=== PATIENT | male | born 1965 | race Caucasian/White ===

== ENCOUNTER 2017-05-16 08:29 | Outpatient (CLI) | payer BC ==
--- NOTE | 2017-05-16 09:59 | CT ---
CT LUMBAR SPINE WITHOUT CONTRAST: History: Low back pain. Symptoms x 30 years. Pain radiates down the right leg. Comparison: None. Technique: Noncontrast lumbar spine CT is performed in the axial plane. Reformatted images are submit ngoc for interpretation. FINDINGS: Five lumbar type vertebral bodies. The lumbar spine vertebral body height is maintained. There is no fracture. Vacuum disc phenomenon at L5-S1. There are bilateral pars defects at L5. There is 7.6 mm an terolisthesis of L5 upon S1. No retroperitoneal mass, lymphadenopathy, or hematoma. There is exophytic hypodensity emanating from the right renal cortex with attenuation coefficient of 9 Hounsfield units compatible with a cyst antionette uring 1.8 cm. Bilaterally, no obstructive uropathy. Visualized alimentary canal is unremarkable. Upper sacrum is unremarkable. Mild leftward curvature of the lumbar spine centered at L4. Limited evaluation of the contents of the central spinal canal and neural foramina due to technique. T11-12 and T12-L1: No significant central canal stenosis or foraminal narrowing. L1-2: No significant central canal stenosis. Neural foramina are patent bilaterally. L2-3: Moderate loss of disc space height. Generalized disc bulge, ligamentum flavum thickening result s in minimal central canal stenosis. Mild right and moderate left foraminal narrowing. L3-4: Mild loss of disc space height. Generalized disc bulge does not cause any high grade central ca nal stenosis. Moderate right and left foraminal narrowing. L4-5: Generalized disc bulge and ligamentum flavum thickening result in mild central canal stenosis. Narrowing of both subarticular zones. Presume mass effect without obscuration of bilateral traversing L5 nerve roots. Moderate bilateral foraminal narrow. L5-S1: Vacuum disc phenomenon. No high grade central canal stenosis. Moderate bilateral foraminal angie rowing. IMPRESSION: 1. Grade I anterolisthesis of L5 upon S1. There is associated bilateral pars defects. 2. Degenerative change in the lumbar spine as above. There is mild central canal stenosis at L4-5. Th ere is presumed mass effect on bilateral traversing L5 nerve roots. Significant foraminal narrowing as detailed above. POS: [facility]
== END 2017-05-16 08:30 | disposition home or self-care (01) ==
LOC: TBSIIMAG 08:29
PROVIDERS: ATTEND Neurological Surgery
DX: M54.5 Low back pain (principal); M43.17 Spondylolisthesis, lumbosacral region; M47.896 Other spondylosis, lumbar region; M48.061 Spinal stenosis, lumbar region without neurogenic claudication; M99.83 Other biomechanical lesions of lumbar region
CPT/HCPCS: 72131

== ENCOUNTER 2017-12-11 08:08 | Day surgery (SDC) | payer BC ==
[2017-12-08 11:04] VITALS: BMI 27.2
--- NOTE | 2017-12-11 07:30 | HP ---
HISTORY OF PRESENT ILLNESS: Mr. Ornelas is a 52-year-old gentleman who reports today for evaluation o f 20 plus years of lumbar back pain that over the last couple of years, it started to increase. He d oes have on occasion some radiation into bilateral buttocks, recent symptoms suggests bilateral pars defects with grade I borderline, grade 2 spondylolisthesis that would explain the symptoms that he lira d therapy, injections, and medications with only minimal relief and is at the point where he wo uld like to move forward with surgery if possible. PAST MEDICAL HISTORY: Significant for osteoarthritis, back pain. CURRENT MEDICATIONS: Tramadol, meloxicam, ibuprofen, Nexium, cyclobenzaprine, methocarbamol, testost erone. ALLERGIES: No known drug allergies. PAST SURGICAL HISTORY: Right knee unspecified, left knee replacement. PHYSICAL EXAMINATION: The patient is alert and oriented x3. Gait is normal, no ataxia. Lower extre mity motor exam is normal. ASSESSMENT: Lumbar back pain and spondylolisthesis. PLAN: Dr. Mitchell met with the patient, reviewed imaging and advocated for bilateral facetectomy seen atL5-S1. He explained to the patient the risks, benefits, alternatives of the procedure. The patien t expressed understanding and would like to move forward with surgery as discussed. I do believe the patient is mentally competent and capable of making medical decisions for himself and we will move f orward with surgery as planned.
[2017-12-11] MEDS ORDERED: Midazolam HCl 2 mg/2 ml Vial ONE (08:39)
[2017-12-11] MEDS ORDERED: CEFAZOLIN 2 GM/50 ML BAG ONE ×2 (08:39→15:35)
[2017-12-11] MEDS ORDERED: Bupivacaine HCl 0.5%/Epinephrine 1:200,000/PF 30 ml Vial ONE (11:10)
[2017-12-11] MEDS ORDERED: Thrombin 5000 UNITS/5 ML VIAL ONE (11:10)
[2017-12-11] MEDS ORDERED: Fentanyl 250 MCG/5 ML VIAL ONE (11:16)
[2017-12-11] MEDS ORDERED: HYDROcodone/Acetaminophen 5/325 mg Tablet ONE (14:55)
[2017-12-11] MEDS ORDERED: PROPOFOL 200 MG/20 ML VIAL ONE (14:58)
[2017-12-11] MEDS ORDERED: Glycopyrrolate 0.2 MG/ML 5 ML SYRINGE ONE (14:58)
[2017-12-11] MEDS ORDERED: Ondansetron PF 4 MG/2 ML Vial ONE (14:58)
[2017-12-11] MEDS ORDERED: Lidocaine 1% PF 5 ML VIAL ONE ×2 (14:58)
[2017-12-11] MEDS ORDERED: Dexamethasone 20 MG/5 ML VIAL ONE (14:58)
[2017-12-11] MEDS ORDERED: PHENYLEPHRINE-NS 100 MCG/ML 10 ML SYRINGE ONE (14:58)
--- NOTE | 2017-12-12 13:07 | OP ---
DATE OF OPERATION: 12/11/2017 SURGEON: Kodak Mitchell M.D. MANAGER [employer]: Fermin Matthew PA-C INDICATION: Pain. DIAGNOSIS: Bilateral L5 pars fractures with associated spondylolisthesis with associated low back pa in and lumbar radiculopathy. PROCEDURE: Bilateral L5-S1 facetectomies, bilateral L5-S1 posterior lateral instrumented fusion, connor cement of allograft, placement of autograft. ANESTHESIA: General. TECHNIQUE: The patient was brought into the operating room and placed under general anesthesia. He was flipped from a supine to prone position on the operating room table. A linear incision was plann ed over the L5-S1 segment. After prepping and draping and after appropriate operative pause, the inc ision was created. The soft tissues were swept away from midline. A self-retaining retractor was pl aced in the wound for optimal exposure. After confirming the appropriate levels with C-arm fluorosco py, the facet joints at L5-S1 were removed until the exiting L5 nerve roots could be visualized and i dentified and found to be decompressed. The pedicles at L5-S1 were identified bilaterally. Pedicle screws were placed in L5-S1 bilaterally with the aid of C-arm fluoroscopy. An intraoperative 3D CT s can was performed to confirm appropriate placement of hardware. Rods were then placed across the scr ew heads and final tightened. Allograft and autograft material were then placed within the lateral c onfines of the instrumentation construct. Wound was irrigated. Hemostasis was maintained throughout . The wound was then closed in anatomic layers and a pressure dressing was applied. There were no k nown procedural complications.
== END 2017-12-11 16:28 | disposition home or self-care (01) ==
LOC: SDC 08:08
PROVIDERS: ATTEND Neurological Surgery
PROC: 0SG30J1 Fusion of Lumbosacral Joint with Synthetic Substitute, Posterior Approach, Posterior Column, Open Approach (ICD-10-PCS; principal; 2017-12-11)
DX: S32.059A Unspecified fracture of fifth lumbar vertebra, initial encounter for closed fracture (principal); M43.16 Spondylolisthesis, lumbar region; M54.16 Radiculopathy, lumbar region; M19.90 Unspecified osteoarthritis, unspecified site; Z79.899 Other long term (current) drug therapy; Z88.5 Allergy status to narcotic agent; Z96.652 Presence of left artificial knee joint
CPT/HCPCS: 76001; 96374; C1713; C1768; J0670; J1100; J2001; J2250; J2405; J2704; J3010

== ENCOUNTER 2018-12-18 11:31 | Outpatient (CLI) | payer BC ==
--- NOTE | 2018-12-18 11:53 | RAD ---
3 views of the lumbar spine: 12/18/2018 COMPARISON: None HISTORY: Low back pain FINDINGS: Posterior fusion hardware with bilateral pedicle screws at L5 and S1 noted. There is artie listhesis of L5 on S1 measuring 12 mm on flexion, 11 mm on extension, and 12 mm on neutral imaging. No additional area of anterolisthesis or retrolisthesis noted within the lumbar spine. There is disc space narrowing with degenerative endplate change at L1-2, L2-3, and L5-S1. IMPRESSION: Degenerative and postoperative change within the lumbar spine as detailed above.
== END 2018-12-18 11:32 | disposition home or self-care (01) ==
LOC: TBSIIMAG 11:31
PROVIDERS: ATTEND Neurological Surgery
DX: M54.5 Low back pain (principal); M47.816 Spondylosis without myelopathy or radiculopathy, lumbar region; M47.817 Spondylosis without myelopathy or radiculopathy, lumbosacral region
CPT/HCPCS: 72100

== ENCOUNTER 2019-02-08 09:30 | Inpatient (IN) | payer BC ==
[2019-02-08] MEDS ORDERED: Diltiazem HCl 125 MG, Admixture Fee 1 EACH in Sodium Chloride 0.9% 100 ML IVPB SCH (10:15)
[2019-02-08 10:29] LABS: #Eosinphils 0.1 thou/uL (0.0-0.7); #Lymphocytes 1.3 thou/uL (1.20-3.40); #Monocytes 0.5 thou/uL (0.11-0.59); #Neutrophils 4.4 thou/uL (1.40-6.50); %Basophils 0.4 % (0.0-1.0); %Eosinophils 1.6 % (0.0-10.0); %Lymphocytes 20.8 % (21.0-51.0); %Monocytes 8.4 % (0.0-10.0); %Neutrophils 68.7 % (42.0-75.0); Hemoglobin 18.9 g/dL (14.0-18.0); Mean Corpuscular HGB CONC 32.3 g/dL (32.0-36.0); Mean Corpuscular Hemoglobin 30.1 pg (27.0-31.0); Mean Corpuscular Volume 93.1 fL (78.0-98.0); Mean Platelet Volume 7.5 fL (7.4-10.4); Platelet Count 222 thou/uL (130-400); RBC Distribution Width 12.2 % (11.5-14.5); Red Blood Cell (RBC) Count 6.27 mill/uL (4.70-6.10); White Blood Cell (WBC) Count 6.5 thou/uL (4.8-10.8)
[2019-02-08 10:47] LABS: ALT (SGPT) 31 U/L (8-55); AST (SGOT) 23 U/L (5-34); Albumin 4.6 g/dL (3.5-5.0); Alkaline Phosphatase 56 U/L (40-110); Anion Gap 13 mmol/L (10-20); BUN (Urea Nitrogen) 14 mg/dL (8.4-25.7); Bilirubin, Total 1.6 mg/dL (0.2-1.2); Calc. Creatinine Clearance 0 mL/min (70-130); Calcium 9.2 mg/dL (7.8-10.44); Carbon Dioxide 29 mmol/L (22-29); Chloride 101 mmol/L (98-107); Estimated GFR-MDRD 65; Globulin 2.7 g/dL (2.4-3.5); Glucose 110 mg/dL (70-105); INR-International Normal Ratio 0.9; PTT 29.4 SEC (22.9-36.1); Protein, Total 7.3 g/dL (6.0-8.3); Prothrombin Time 12.2 SEC (12.0-14.7); Sodium 139 mmol/L (136-145)
[2019-02-08 10:52] LABS: D-Dimer Test Less than 0.27 *mcg/mL (0.27-0.43)
--- NOTE | 2019-02-08 10:53 | RAD ---
CHEST ONE VIEW: HISTORY: Chest pain. COMPARISON: Radiograph from 12/12/2013. FINDINGS: The lungs are clear. No pneumothorax or effusion. The cardiac silhouette and mediastinal contour is w ithin normal limits. Low grade atelectatic changes in the lung bases. No acute osseous abnormality. IMPRESSION: No acute intrathoracic abnormality. POS: [facility]
[2019-02-08] MEDS ORDERED: Magnesium 2 GM/50 ML BAG (IN WATER) ONE (10:59)
[2019-02-08] MEDS ORDERED: Aspirin Chewable 81 MG TAB ONE (10:59)
[2019-02-08] MEDS ORDERED: Ondansetron PF 4 MG/2 ML Vial IVP PRN (11:26)
[2019-02-08] MEDS ORDERED: Acetaminophen 325 MG TAB PO PRN (11:26)
[2019-02-08] MEDS ORDERED: Diltiazem 125 MG in Sodium Chloride 0.9% 100 ML IVPB SCH (11:30)
--- NOTE | 2019-02-08 12:08 | HP ---
PRIMARY CARE PROVIDER: Kendra Montiel, in [place], [place] CHIEF COMPLAINT: Palpitations. HISTORY OF PRESENT ILLNESS: Mr. Ornelas is a pleasant 53-year-old gentleman, who was seen at [facility] on February 08, 2019. He reports that he has a chronic history of palpitations. He saw Cardiology, Dr. Joyner approximately 6 years ago. At that time, he had echocardiogram and stress test. His palpitations were attributed to PVCs. He continued to have symptoms on and off. He saw diver assistant, Dr. Gonzalez and approximately a month ago, had Holter monitor for a week. He has not gone back for his followup yet. Today morning, he started having palpitations again. He felt lightheaded and sweaty. He denies any chest pain. He denies any nausea or vomiting. He denies any abdominal pain. He called EMS. He was found to be in atrial fibrillation with rapid ventricular response at 190 beats per minute. He received 50 mg of Cardizem and nitroglycerin, with improvement in his heart rate. REVIEW OF SYSTEMS: All systems were reviewed and found to be negative, except for the pertinent positives mentioned above. PAST MEDICAL HISTORY: Palpitations. PAST SURGICAL HISTORY: Bilateral knee surgery, left shoulder surgery, back surgery. PSYCHIATRIC HISTORY: Anxiety. SOCIAL HISTORY: Occasional alcohol use, no tobacco or recreational drug use. FAMILY HISTORY: Coronary artery disease and diabetes mellitus in his father. ALLERGIES: MORPHINE. CURRENT MEDICATIONS: 1. Tramadol p.r.n. 2. Wellbutrin 150 mg daily. PHYSICAL EXAMINATION: GENERAL: On examination, Mr. Ornelas is awake and alert, not in acute distress. VITAL SIGNS: Blood pressure is 159/109, pulse 97, respiratory rate 18, and oxygen saturation 97% on room air. EYES: No scleral icterus, no conjunctival pallor. ENT: Moist mucosal membranes. No oropharyngeal erythema or exudates. NECK: Supple, nontender, trachea is midline. RESPIRATORY: Accessory muscles of breathing are not active. Chest wall movements are symmetric bilaterally. Lungs are clear to auscultation without wheeze, rhonchi, or crepitations. CARDIOVASCULAR: S1 and S2 are heard, irregular. Peripheral pulses palpable. No carotid bruit, no pericardial rub. ABDOMEN: Soft, nontender, bowel sounds are heard. NEUROLOGIC: Cranial nerves 2 through 12 are intact. MUSCULOSKELETAL: Power is 5/5 in all 4 extremities. SKIN: No rashes or subcutaneous nodules. LYMPHATIC: No cervical lymphadenopathy. PSYCHIATRIC: Normal mood, normal affect, the patient is oriented to person, place, and time. LABORATORY DATA: Mr. Ornelas's labs and investigations were reviewed. Electrocardiogram shows atrial fibrillation with rapid ventricular response. Chest x-ray does not show any pulmonary infiltrates. He has normal white count, elevated hemoglobin of 18.9, normal platelet count. INR 0.9, D-dimer less than 0.27, mildly elevated total bilirubin of 1.6, otherwise unremarkable comprehensive metabolic profile and elevated TSH of 6.7053. ASSESSMENT AND PLAN: Mr. Ornelas is a pleasant 53-year-old gentleman, who was seen at [facility] on February 08, 2019. His problem list includes: 1. Atrial fibrillation with rapid ventricular response: Mr. Ornelas is presenting with atrial fibrillation with rapid ventricular response. He is currently on a Cardizem drip, with control of his heart rate. I will continue him on Cardizem drip. I will consult Electrophysiology for opinion and help with management. 2. Elevated TSH: We will check free T4 level. 3. Elevated hemoglobin: Etiology is unclear. I will recheck his hemoglobin. 4. Elevated total bilirubin: Again, etiology is unclear. I will recheck his total bilirubin before ordering further tests. 5. Anxiety: Continue Wellbutrin. Many thanks for allowing me to participate in your patient's care. Please feel free to contact me with any questions or concerns. LEVEL OF RISK: Moderate. LEVEL OF COMPLEXITY: Moderate. Job ID: [id number]
[2019-02-08] MEDS ORDERED: Acetaminophen 500 MG TAB ONE (12:25)
--- NOTE | 2019-02-08 13:18 | CON ---
DATE OF CONSULTATION: 02/08/2019 HISTORY OF PRESENT ILLNESS: I am seeing Mr. 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 His problems are; 1. Newly found paroxysmal atrial fibrillation. a. history of palpitations over 6 years. b. Currently under event monitoring. 2. No history of structural heart disease per the patient's history. 3. History of back pain and chronic tramadol use. ALLERGIES: MORPHINE. MEDICATIONS: At home included; 1. Multivitamin. 2. Probiotic. 3. Ibuprofen. 4. Tramadol. 5. Testosterone. SUBJECTIVE: Mr. Ornelas is here with a sustained palpitations, which started this morning, but it was very rapid. He had mild dizziness associated with that. Denies chest pains. He does not pass out. No stroke-like symptoms. No fever, chills , or cough. No neurological deficits or bleeding issues are noted. No angina-like discomfort. REVIEW OF SYSTEMS: Rest of 12-point review of system is otherwise unremarkable. PAST MEDICAL HISTORY: Prior history of palpitations, had dizzy spells prompted cardiac evaluation about [address] Joyner, without any major findings at that point. SOCIAL HISTORY: He is . is at bedside. He drinks alcohol socially once a month. Denies drug use. FAMILY HISTORY: Not contributory. PAST SURGICAL HISTORY: Significant for left knee surgery, shoulder surgery. OBJECTIVE DATA: VITAL SIGNS: Blood pressure initially 131/95, heart rate 106, respiration is 24, temperature 98.1 degrees Fahrenheit. On my exam, blood pressure is 140/110, heart rate 135. GENERAL: This is an alert and oriented man, in no apparent distress. NECK: Supple. Jugular vein is not distended. CHEST: Coarse without crackles. HEART: Sounds are irregularly irregular. S1 and S2 are variable. I did not hear murmur or gallop. PMI is nondisplaced. ABDOMEN: Benign. Bowel sounds positive. No hepatosplenomegaly or masses are felt. EXTREMITIES: Lower extremities without edema, clubbing, or cyanosis. Pulses are adequate. NEUROLOGIC: The patient is nonfocal. MUSCULOSKELETAL: Without joint swelling or deformity. SKIN: Without rash. DATABASE: EKG is reviewed, revealing atrial fibrillation, narrow QRS, normal QT , rate of 106 beats per minute. LABORATORY DATA: White cell count 6.5, hemoglobin 18.9, platelet count is 222. Sodium 139, potassium 4, BUN is 14, and creatinine is 1.17. AST and ALT are 23 and 31. Troponin-I 0.01. TSH is 6.7, free T4 is 1.19. ASSESSMENT AND PLAN: Mr. Ornelas is a 53-year-old man with a history of palpitations, for which he is actually wearing an event monitor, but has not been evaluated yet by his ordering physician Dr. Gonzalez. He underwent prior cardiac evaluation without significant findings according to him by Dr. Joyner in the distant past. Now, his palpitations lasted longer than usual and he came to the ER with atrial fibrillation with rapid rates. Atrial fibrillation continues with the initiated diltiazem medication. My plan would be at this point; 1. consider full dose Lovenox. 2. Continue rate controlling with diltiazem. 3. Consider expedited cardioversion. 4. Could consider flecainide 50 mg twice a day standing dose. 5. Follow up with EP for consideration for pulmonary venous isolation procedure. Thank you again for allowing me to participate in the care of this patient. Job ID: [id number] MTDD
[2019-02-08 14:37] LABS: Troponin I Less than 0.010 ng/mL (< 0.028)
[2019-02-08 17:45] LABS: Troponin I Less than 0.010 ng/mL (< 0.028)
[2019-02-08 18:25] VITALS: BMI 29.0
[2019-02-08] MEDS: Rivaroxaban 10 MG TAB PO SCH (18:32)
[2019-02-08] MEDS ORDERED: Enoxaparin Sodium 100 MG/ML SYRINGE SC SCH (21:00)
[2019-02-08] MEDS: Flecainide 50 MG TAB PO SCH (22:17)
[2019-02-09 04:53] LABS: #Basophils 0.1 thou/uL (0.0-0.2); #Eosinphils 0.1 thou/uL (0.0-0.7); #Lymphocytes 1.6 thou/uL (1.20-3.40); #Monocytes 0.7 thou/uL (0.11-0.59); #Neutrophils 5.6 thou/uL (1.40-6.50); %Basophils 0.7 % (0.0-1.0); %Eosinophils 1.9 % (0.0-10.0); %Lymphocytes 19.7 % (21.0-51.0); %Monocytes 8.1 % (0.0-10.0); %Neutrophils 69.6 % (42.0-75.0); Hemoglobin 17.3 g/dL (14.0-18.0); Mean Corpuscular HGB CONC 33.8 g/dL (32.0-36.0); Mean Corpuscular Hemoglobin 31.5 pg (27.0-31.0); Mean Corpuscular Volume 93.5 fL (78.0-98.0); Mean Platelet Volume 7.5 fL (7.4-10.4); Platelet Count 219 thou/uL (130-400); RBC Distribution Width 12.4 % (11.5-14.5); Red Blood Cell (RBC) Count 5.48 mill/uL (4.70-6.10)
[2019-02-09 05:20] LABS: ALT (SGPT) 25 U/L (8-55); AST (SGOT) 17 U/L (5-34); Albumin 3.9 g/dL (3.5-5.0); Alkaline Phosphatase 48 U/L (40-110); Anion Gap 9 mmol/L (10-20); BUN (Urea Nitrogen) 18 mg/dL (8.4-25.7); Bilirubin, Total 0.8 mg/dL (0.2-1.2); Calc. Creatinine Clearance 80 mL/min (70-130); Calcium 8.8 mg/dL (7.8-10.44); Carbon Dioxide 29 mmol/L (22-29); Chloride 106 mmol/L (98-107); Estimated GFR-MDRD 54; Globulin 2.6 g/dL (2.4-3.5); Glucose 128 mg/dL (70-105); Potassium 3.6 mmol/L (3.5-5.1); Protein, Total 6.5 g/dL (6.0-8.3); Sodium 140 mmol/L (136-145)
[2019-02-09] MEDS ORDERED: Cepastat Lozenges 1 LOZ PO PRN (07:26)
[2019-02-09] MEDS ORDERED: Zolpidem Tartrate 5 MG TAB PO PRN (07:26)
[2019-02-09] MEDS ORDERED: Loperamide HCl 2 MG CAP PO PRN (07:26)
[2019-02-09] MEDS ORDERED: Bisacodyl 10 MG SUPP PR PRN (07:26)
[2019-02-09] MEDS ORDERED: Acetaminophen 500 MG TAB PO PRN (07:26)
[2019-02-09] MEDS ORDERED: Calcium Carbonate 500 MG ChewTAB PO PRN (07:26)
[2019-02-09] MEDS ORDERED: Diabetic Tussin 200 MG/10 ML UDCUP PO PRN (07:26)
[2019-02-09] MEDS ORDERED: Labetalol HCl 100 MG/20 ML VIAL SLOW IVP PRN (07:26)
[2019-02-09] MEDS ORDERED: Sodium Chloride 0.65% Nasal 44 ML BOT EA NARE PRN (07:26)
[2019-02-09] MEDS ORDERED: Senokot S 8.6-50 MG TAB PO PRN (07:26)
[2019-02-09] MEDS ORDERED: Loratadine 10 MG TAB PO PRN (07:26)
[2019-02-09] MEDS ORDERED: Ondansetron ODT 4 MG TAB PO PRN (07:26)
[2019-02-09] MEDS: Bupropion 150 MG SR TAB PO SCH (08:59)
[2019-02-09] MEDS: Flecainide 50 MG TAB PO SCH ×2 (09:00→20:23)
[2019-02-09] MEDS ORDERED: Enoxaparin Sodium 40 MG/0.4 ML SYRINGE SC SCH (09:00)
--- NOTE | 2019-02-09 10:13 | PDOC.HOSPP ---
- Subjective Encounter Date: 02/09/19 Encounter Time: 08:10 Subjective: Patient seen and examined. No new complaints. No overnight events - Objective Vital Signs & Weight: Vital Signs (12 hours) Temp Pulse Resp BP Pulse Ox 02/09/19 08:00 97.9 F 67 18 140/75 93 L 02/09/19 03:54 97.7 F 62 18 116/68 96 Weight Weight 202 lb 9.6 oz Result Diagrams: 02/09/19 04:22 02/09/19 04:22 Radiology Reviewed by me: Yes EKG Reviewed by me: Yes Hospitalist ROS - Review of Systems ENT: denies: ear pain, ear discharge, nose pain, nose discharge, nose congestion , mouth pain, mouth swelling, throat pain, throat swelling, other Respiratory: denies: cough, dry, shortness of breath, hemoptysis, SOB with excertion, pleuritic pain, sputum, wheezing, other Cardiovascular: denies: chest pain, palpitations, orthopnea, paroxysmal noc. dyspnea, edema, light headedness, other Gastrointestinal: denies: nausea, vomiting, abdominal pain, diarrhea, constipation, melena, hematochezia, other Genitourinary: denies: dysuria, frequency, incontinence, hematuria, retention, other Musculoskeletal: denies: neck pain, shoulder pain, arm pain, back pain, hand pain, leg pain, foot pain, other - Medication Medications: Active Medications Generic Name Dose Route Start Last Admin Trade Name Freq PRN Reason Stop Dose Admin Bupropion HCl 150 mg 02/09/19 09:00 02/09/19 08:59 Wellbutrin Sr PO 150 mg DAILY COLEMAN Administration Flecainide Acetate 50 mg 02/08/19 21:00 02/09/19 09:00 Tambocor PO 50 mg Q12HR COLEMAN Administration Diltiazem HCl 125 mg/ Sodium 125 mls @ 10 mls/hr 02/08/19 11:30 02/08/19 22: 56 Chloride IVPB 125 mls INF COLEMAN Administration Protocol 10 MG/HR Rivaroxaban 20 mg 02/08/19 17:00 02/08/19 18:32 Xarelto PO 20 mg 1700 COLEMAN Administration - Exam General Appearance: NAD, awake alert Eye: PERRL, anicteric sclera ENT: normocephalic atraumatic, no oropharyngeal lesions Neck: supple, symmetric, no JVD Heart: RRR, no murmur, no gallops Respiratory: CTAB, no wheezes, no rales Gastrointestinal: soft, non-tender, non-distended Extremities: no cyanosis, no clubbing Skin: normal turgor, no lesions Neurological: no focal deficits Musculoskeletal: normal tone, normal strength Psychiatric: normal affect, normal behavior Hosp A/P (1) Atrial fibrillation Code(s): I48.91 - UNSPECIFIED ATRIAL FIBRILLATION Status: Acute Qualifiers: Atrial fibrillation type: paroxysmal Qualified Code(s): I48.0 - Paroxysmal atrial fibrillation (2) Hypothyroidism Code(s): E03.9 - HYPOTHYROIDISM, UNSPECIFIED Status: Acute - Plan old records reviewed/req pt is converted to nsr, on flecainide, advised to stay for monitoring rhythem with flecainide, medication reviewed and continue to provide symptomatic treatment and supportive care, add levothyroxin 25 mcg daily
[2019-02-09] MEDS ORDERED: Rivaroxaban 10 MG TAB PO SCH (17:00)
[2019-02-09] MEDS: Rivaroxaban 10 MG TAB PO SCH (17:40)
[2019-02-10] MEDS ORDERED: Levothyroxine Sodium 25 MCG TAB PO SCH (06:00)
[2019-02-10] MEDS: Bupropion 150 MG SR TAB PO SCH (08:21)
[2019-02-10] MEDS: Flecainide 50 MG TAB PO SCH (08:21)
--- NOTE | 2019-02-10 11:37 | PDOC.HOSPP ---
- Subjective Encounter Date: 02/10/19 Encounter Time: 08:15 Subjective: Patient seen and examined. No new complaints. No overnight events - Objective Vital Signs & Weight: Vital Signs (12 hours) Temp Pulse Resp BP Pulse Ox 02/10/19 08:14 98.2 F 81 16 147/87 H 96 02/10/19 03:21 97.4 F L 74 18 134/83 94 L Weight Weight 202 lb 9.6 oz I&O: 02/09/19 02/10/19 02/11/19 06:59 06:59 06:59 Intake Total 1440 Balance 1440 Result Diagrams: 02/09/19 04:22 02/09/19 04:22 EKG Reviewed by me: Yes Hospitalist ROS - Review of Systems ENT: denies: ear pain, ear discharge, nose pain, nose discharge, nose congestion , mouth pain, mouth swelling, throat pain, throat swelling, other Respiratory: denies: cough, dry, shortness of breath, hemoptysis, SOB with excertion, pleuritic pain, sputum, wheezing, other Cardiovascular: denies: chest pain, palpitations, orthopnea, paroxysmal noc. dyspnea, edema, light headedness, other Gastrointestinal: denies: nausea, vomiting, abdominal pain, diarrhea, constipation, melena, hematochezia, other Genitourinary: denies: dysuria, frequency, incontinence, hematuria, retention, other Musculoskeletal: denies: neck pain, shoulder pain, arm pain, back pain, hand pain, leg pain, foot pain, other - Medication Medications: Active Medications Generic Name Dose Route Start Last Admin Trade Name Freq PRN Reason Stop Dose Admin Bupropion HCl 150 mg 02/09/19 09:00 02/10/19 08:21 Wellbutrin Sr PO 150 mg DAILY COLEMAN Administration Flecainide Acetate 50 mg 02/08/19 21:00 02/10/19 08:21 Tambocor PO 50 mg Q12HR COLEMAN Administration Levothyroxine Sodium 25 mcg 02/10/19 06:00 02/10/19 06:19 Synthroid PO 25 mcg 0600 COLEMAN Administration Rivaroxaban 20 mg 02/08/19 17:00 02/09/19 17:40 Xarelto PO 20 mg 1700 COLEMAN Administration - Exam General Appearance: NAD, awake alert Eye: PERRL, anicteric sclera ENT: normocephalic atraumatic, no oropharyngeal lesions Neck: supple, symmetric, no JVD Heart: RRR, no murmur, no gallops Respiratory: CTAB, no wheezes, no rales, no ronchi Gastrointestinal: soft, non-tender, non-distended Extremities: no cyanosis, no clubbing, no edema Skin: normal turgor, no lesions Neurological: no focal deficits Musculoskeletal: normal tone, normal strength Psychiatric: normal affect, normal behavior Hosp A/P (1) Atrial fibrillation Code(s): I48.91 - UNSPECIFIED ATRIAL FIBRILLATION Status: Acute Qualifiers: Atrial fibrillation type: paroxysmal Qualified Code(s): I48.0 - Paroxysmal atrial fibrillation (2) Hypothyroidism Code(s): E03.9 - HYPOTHYROIDISM, UNSPECIFIED Status: Acute - Plan old records reviewed/req, plan discussed w/ family pt is converted to nsr, on flecainide, advised to stay for monitoring rhythem with flecainide, medication reviewed and continue to provide symptomatic treatment and supportive care, add levothyroxin 25 mcg daily 02/10/19, today will discharge him, see discharge all
[2019-02-10 12:01] VITALS: TEMP 98.1
[2019-02-10 12:29] VITALS: BP 165/97
--- NOTE | 2019-02-10 14:31 | DIS ---
DATE OF ADMISSION: 02/08/2019 DATE OF DISCHARGE: 02/10/2019 PRIMARY CARE PHYSICIAN: [facility] Call admission. DISCHARGE DISPOSITION: Home. PRIMARY DISCHARGE DIAGNOSES: 1. New onset atrial fibrillation converted to sinus rhythm. 2. Hypothyroidism. SECONDARY DISCHARGE DIAGNOSES: Gastroesophageal reflux disease, anxiety and depression. PRIMARY PROCEDURE/OPERATION: None. RADIOLOGICAL INVESTIGATION: Chest x-ray normal. Echocardiography showed normal EF. SIGNIFICANT LABORATORY DATA: WBC 8.0, hemoglobin 17.3, and platelets 219. INR 0.9. D-dimer less than 0.27. Sodium 140, creatinine 1.37. LFT normal. Cardiac enzyme negative. TSH 6.7, free T4 of 1.19. DISCHARGE MEDICATIONS: 1. Testosterone 50 mg IM every seven days as per previous. 2. Bupropion XL 150 mg daily. 3. Lactobacillus one capsule p.o. daily. 4. Multivitamin one tablet p.o. daily. 5. Tramadol 50 mg as directed. 6. Flecainide 50 mg twice daily. 7. Synthroid 25 mcg p.o. daily. 8. Xarelto 20 mg p.o. daily. CONTRAINDICATION: None. CODE STATUS: Full code. INPATIENT PROCUREMENT CLERK: Dr. Sherwood was consulted while in hospital. TEST RESULT PENDING ON DISCHARGE: None. ALLERGIES: MORPHINE. DISCHARGE PLAN: Posthospital, the patient will follow up with primary care physician and the patient is instructed to follow up with Dr. Presley Oconnell in one week. HOSPITAL COURSE: A 53-year-old male with above-mentioned medical problem, who was admitted by Dr. Waddell. Please see his H and P for further details. The patient was admitted for new onset atrial fibrillation. The patient was having palpitation and EKG showed atrial fibrillation with RVR. The patient was treated with Cardizem drip and program aide group work was consulted and they recommended to start flecainide. After starting flecainide, the patient converted to sinus rhythm. The patient was requiring chronic anticoagulation with Xarelto that was started during this hospital. After starting flecainide, we observed for any EKG changes and he did not have any EKG changes. The patient insisted on going home today and that is why we are discharging per his request and the patient will follow up with program aide group work in one week. His TSH was slightly elevated and that is why we started levothyroxine 25 mcg p.o. daily and he will follow up with primary care physician for further evaluation and treatment. The patient is seen and examined at bedside today. Please see my progress note from today for further details. All medication side effects and interaction were discussed. We have told him to discontinue bupropion XL if possible because there is possible interaction with flecainide. Job ID: [id number]
== END 2019-02-10 12:40 | disposition home or self-care (01) | DRG 310 ==
LOC: ERS 09:30 → ERHOLD 11:59 → 2NO 17:52
PROVIDERS: ADMIT Internal Medicine; ATTEND Internal Medicine
DX: I48.0 Paroxysmal atrial fibrillation (principal); F41.9 Anxiety disorder, unspecified; M54.9 Dorsalgia, unspecified; E03.9 Hypothyroidism, unspecified; K21.9 Gastro-esophageal reflux disease without esophagitis; F32.9 Major depressive disorder, single episode, unspecified; Z88.5 Allergy status to narcotic agent; Z79.899 Other long term (current) drug therapy
CPT/HCPCS: 36415; 71045; 80053; 84439; 84443; 84484; 85025; 85379; 85610; 85730; 93005; 93010; 93306; 96361; 96365; 96366; 96375; J3475; J3490

== ENCOUNTER 2020-09-28 15:11 | Emergency (ER) | payer BC ==
[2020-09-28 15:47] LABS: #Eosinphils 0.1 thou/uL (0.0-0.7); #Lymphocytes 1.8 thou/uL (1.20-3.40); #Monocytes 0.5 thou/uL (0.11-0.59); #Neutrophils 4.7 thou/uL (1.40-6.50); %Basophils 0.6 % (0.0-1.0); %Eosinophils 1.5 % (0.0-10.0); %Lymphocytes 25.3 % (21.0-51.0); %Monocytes 7.1 % (0.0-10.0); %Neutrophils 65.6 % (42.0-75.0); Hemoglobin 17.3 g/dL (14.0-18.0); Mean Corpuscular HGB CONC 34.1 g/dL (32.0-36.0); Mean Corpuscular Hemoglobin 32.8 pg (27.0-31.0); Mean Corpuscular Volume 96.1 fL (78.0-98.0); Mean Platelet Volume 6.9 fL (7.4-10.4); Platelet Count 278 thou/uL (130-400); RBC Distribution Width 12.2 % (11.5-14.5); Red Blood Cell (RBC) Count 5.27 mill/uL (4.70-6.10); White Blood Cell (WBC) Count 7.2 thou/uL (4.8-10.8)
[2020-09-28 16:07] LABS: ALT (SGPT) 26 U/L (8-55); AST (SGOT) 24 U/L (5-34); Albumin 4.2 g/dL (3.5-5.0); Alkaline Phosphatase 45 U/L (40-110); Anion Gap 11 mmol/L (10-20); BUN (Urea Nitrogen) 27 mg/dL (8.4-25.7); Bilirubin, Total 1.5 mg/dL (0.2-1.2); CK (CPK) 286 U/L (30-200); Calc. Creatinine Clearance 0 mL/min (70-130); Calcium 8.9 mg/dL (7.8-10.44); Carbon Dioxide 25 mmol/L (22-29); Chloride 106 mmol/L (98-107); Globulin 2.7 g/dL (2.4-3.5); Glucose 91 mg/dL (70-105); Potassium 4.4 mmol/L (3.5-5.1); Protein, Total 6.9 g/dL (6.0-8.3); Sodium 138 mmol/L (136-145)
== END 2020-09-28 19:25 | disposition left against medical advice (07) ==
LOC: ERS 15:11
DX: G45.9 Transient cerebral ischemic attack, unspecified (principal); I10 Essential (primary) hypertension; Z79.899 Other long term (current) drug therapy
CPT/HCPCS: 36415; 70450; 80053; 82550; 83880; 84484; 85025; 93005

== ENCOUNTER 2023-10-27 09:09 | Day surgery (SDC) | payer BC ==
[2023-10-25 14:03] VITALS: BMI 30.4
[2023-10-27] MEDS ORDERED: Iopamidol 370 76% 100 ML VIAL ONE (10:36)
[2023-10-27] MEDS ORDERED: Verapamil 5 MG/2 ML VIAL ONE (11:35)
[2023-10-27] MEDS ORDERED: Adenosine 6 mg (2 mL) VIAL ONE (11:35)
[2023-10-27] MEDS ORDERED: Nitroglycerin 50 MG/250 ML BOT 250 ML ONE (11:36)
[2023-10-27] MEDS ORDERED: Heparin 10,000 UNITS/ 10 ML VIAL ONE (11:36)
[2023-10-27] MEDS ORDERED: Midazolam HCl 2 mg/2 ml Vial ONE (12:15)
[2023-10-27] MEDS ORDERED: fentaNYL 50 mcg/mL 1 mL Vial ONE (12:15)
== END 2023-10-27 16:32 | disposition home or self-care (01) ==
LOC: SDC 09:09
PROVIDERS: ATTEND Internal Medicine Cardiovascular Disease
PROC: B200YZZ Plain Radiography of Single Coronary Artery using Other Contrast (ICD-10-PCS; principal; 2023-10-27)
PROC: 4A023N7 Measurement of Cardiac Sampling and Pressure, Left Heart, Percutaneous Approach (ICD-10-PCS; principal; 2023-10-27)
PROC: B205YZZ Plain Radiography of Left Heart using Other Contrast (ICD-10-PCS; principal; 2023-10-27)
DX: I48.91 Unspecified atrial fibrillation (principal); I34.0 Nonrheumatic mitral (valve) insufficiency; Z88.5 Allergy status to narcotic agent
CPT/HCPCS: 93458; 99152; C1769; C1894; J0153; J1644; J2250; J3010

== ENCOUNTER 2023-12-26 11:15 | Outpatient (CLI) | payer BC | END 2023-12-26 11:16 | disposition home or self-care (01) | LOC: RAD 11:15 | PROVIDERS: ATTEND Internal Medicine Cardiovascular Disease | DX: I48.0 Paroxysmal atrial fibrillation (principal); J98.59 Other diseases of mediastinum, not elsewhere classified; I51.89 Other ill-defined heart diseases | CPT/HCPCS: 71046 ==